=== PATIENT | female | born 1955 | race Caucasian/White ===

== ENCOUNTER 2017-07-12 08:30 | Inpatient (IN) | payer OTHER ==
--- NOTE | 2017-06-15 11:48 | HP ---
DATE OF ADMISSION: 07/12/2017 DATE OF DICTATION: 06/13/2017 DATE OF SURGERY: 07/12/2017 BRIEF HISTORY: This is a 62-year-old female who underwent an open gastric bypass in early 1999/late 1998. She was told by her surgeon that she has a hernia from her bypass, and over the ensuing 15+ years, the hernia has gotten larger and now causes her discomfort. Approximately a month ago, the patient woke up in sharp pain from the hernia. This resolved spontaneously. Since that event, she has had several more episodes of discomfort in the region of the hernia. Each event was associated with nausea but no vomiting. Patient now wishes to undergo a hernia repair. PAST MEDICAL HISTORY: Significant for hypertension, hypercholesterolemia. PAST SURGICAL HISTORY: As mentioned above, laparoscopic cholecystectomy. MEDICATIONS: Hydrochlorothiazide, atorvastatin, vitamins. ALLERGIES: None. SOCIAL HISTORY: Patient does not smoke. She drinks socially. PHYSICAL EXAMINATION: Abdomen: Obese, soft, nontender, nondistended. In the erect position, she has an obvious hernia at the inferior aspect of her midline incision. It is approximately the size of a baseball. It is difficult to note at times on physical exam due to patient's body habitus. The hernia is nontender. The remainder of the abdominal examination is unremarkable. She has a midline incision, and she also has several laparoscopic cholecystectomy scars. IMPRESSION/PLAN: Chronic incarcerated ventral incisional hernia. This is a 62-year-old female who now is symptomatic from her large complex ventral incisional hernia. At this point, I would recommend a repair. The consultation lasted over 1 hour discussing pros and cons of various surgical approaches such as laparoscopic, robotic, and open. We have discussed placement of mesh between intraperitoneal, retrorectus, onlay. We have also discussed the various techniques of repair and different types of meshes to be used. The patient understands the various choices and has opted to proceed with an open ventral hernia repair and component separation with mesh. The indications, alternatives, and complications of this procedure have been discussed at length. Questions have been answered. We will plan to obtain written consent the day of surgery. JOSELIN LENNON M.D. [id number] cc: Rudi Ralph MD
[2017-07-12 09:01] VITALS: BMI 32.5
[2017-07-12] MEDS ORDERED: DEXAMETHASONE SOD PHOSPHATE/PF 10 MG/ML SDV ONE (09:53)
[2017-07-12] MEDS ORDERED: MIDAZOLAM HCL 2 MG/2 ML SINGLE DOSE VIAL ONE (09:53)
[2017-07-12] MEDS ORDERED: BUPIVACAINE HCL/PF (5 MG/ML) 30 ML VIAL IJ ONE (09:54)
[2017-07-12] MEDS ORDERED: morphine CARPU-JECT 10 MG/1 ML DISP.SYRIN IVPB PRN (10:24)
[2017-07-12] MEDS ORDERED: ACETAMINOPHEN 325 MG TABLET (FP) PO PRN (10:24)
[2017-07-12] MEDS ORDERED: ONDANSETRON 4 MG/2 ML VIAL IVPUSH PRN ×2 (10:24→13:30)
[2017-07-12] MEDS ORDERED: traMADol HCL 50 MG TABLET PO PRN (10:28)
[2017-07-12] MEDS ORDERED: D5-1/2NS+20 MEQ KCL - 20 MEQ/1,000 ML INFUS.BAG IV SCH (10:30)
[2017-07-12] MEDS ORDERED: PROPOFOL 20 ML ONE ×3 (11:36→13:54)
[2017-07-12] MEDS ORDERED: ROCURONIUM BROMIDE 50 MG/5 ML VIAL ONE ×3 (11:36→13:18)
[2017-07-12] MEDS ORDERED: fentaNYL CITRATE 250 MCG/5 ML VIAL ONE (11:36)
[2017-07-12] MEDS ORDERED: ceFAZolin SODIUM 1 GM VIAL ONE (12:04)
[2017-07-12] MEDS ORDERED: ONDANSETRON 4 MG/2 ML VIAL ONE ×2 (12:11→13:52)
[2017-07-12] MEDS ORDERED: DEXAMETHASONE SOD PHOSPHATE 4 MG/1 ML VIAL ONE (12:11)
[2017-07-12] MEDS ORDERED: HYDROmorphone HCL CARPU-JECT 1 MG/1 ML DISP.SYRIN IVPUSH PRN (13:30)
[2017-07-12] MEDS ORDERED: LACTATED RINGERS SOLUTION 1,000 ML IV SCH (13:30)
[2017-07-12] MEDS ORDERED: IBUPROFEN 800 MG/8 ML IJ IVPB ONE ×2 (13:30→14:29)
[2017-07-12] MEDS ORDERED: NEOSTIGMINE METHYLSULFATE 0.5 MG/ML - 10 ML MDV ONE (13:52)
[2017-07-12] MEDS ORDERED: GLYCOPYRROLATE 0.2 MG/1 ML VIAL ONE (13:52)
[2017-07-12] MEDS ORDERED: HYDROmorphone HCL CARPU-JECT 1 MG/1 ML DISP.SYRIN IVPUSH ONE ×2 (14:40→15:01)
[2017-07-12] MEDS ORDERED: HYDROmorphone HCL CARPU-JECT 1 MG/1 ML DISP.SYRIN ONE (14:40)
--- NOTE | 2017-07-12 16:31 | OP ---
DATE OF OPERATION: 07/12/2017 PREOPERATIVE DIAGNOSIS: Complex, chronically incarcerated ventral incisional hernia. POSTOPERATIVE DIAGNOSIS: Complex, chronically incarcerated ventral incisional hernia; patient noted to have 2 complex hernias in the abdominal wall. PROCEDURES: Bilateral component separation, extensive lysis of adhesions, repair of complex, chronically incarcerated ventral hernia x2 with mesh. SURGEON: Tai Lennon MD DRAWER WAXER: Tirso Joshi MD ANESTHESIA: Saw Langley MD (general). ESTIMATED BLOOD LOSS: Minimal. SPECIMEN: None. INDICATIONS FOR PROCEDURE: This is a 62-year-old female who underwent an open gastric bypass in 1999. At that time, she was noted to have a large hernia following the bypass, but it had not bothered her and therefore she did not seek attention. Over the ensuing 15 years, the hernia has developed and gotten much larger, and now she has a discrete lump in the lower part of the incision. The mass is causing her discomfort and she wished to have her hernia repaired. The patient was identified and appropriately positioned on the operating room table. After the placement of general anesthesia, the abdomen prepped and draped in the usual sterile fashion with ChloraPrep. A midline incision overlying the previous scar was made and deepened through subcutaneous tissue. The hernia identified in the subcutaneous tissue and dissected free from the subcutaneous tissue bluntly down to the level of the fascia. There was also another hernia noted approximately 5 inches above. This was treated as a second hernia and the bridge between the two was not divided since there was a good 5- inch bridge. The second hernia isolated again and sharply excised at the fascial level. The sac was closed with a running 3-0 Maxon suture. The larger hernia sac inferiorly was opened. The abdomen was entered and in doing so, there were dense adhesions of omentum, small bowel and colon plastered to the anterior abdominal wall. A good portion of this operation was dedicated to an extensive lysis of adhesions (approximately 40 to 45 minutes). All these adhesions were taken down with either cautery or sharply. After the extensive lysis of adhesions, the posterior rectus space was entered by dividing the right posterior rectus sheath. It was opened on the patient's right side and connected at the level of the midline. The posterior rectus space was then developed bluntly and dissection ensued laterally. The perforating vessels encountered and just medial to the perforating vessels, the tissue was scored and the transversus was and released from the obliques along with the rectus at its junction. This myofascial separation ensued approximately 4 to 5 inches above and below the actual defect. A similar approach was done on the patient's left side. The left retrorectus space was entered by dividing the posterior sheath, the muscle identified, and using blunt and sharp dissection the muscles off the posterior sheath. Due to her previous surgery, this area was much more scarred in. However, the muscles divided with the cautery as needed. Again, the perforating vessels encountered and the fascia just medial to the perforating vessels was then divided with the Bovie and the myofascial separation of the rectus from the transversus and obliques was done at their junction. This was taken 4 to 5 inches above and below the actual defect. Next , the posterior sheath was then reapproximated with the 2-0 V-Loc suture. The posterior rectus space was irrigated on both sides and the operative field examined and noted to be hemostatic. The defect identified, and given the large defect, a large 30 x 30 piece of Versatex and a 20 x 15 piece of Phasix was used for the operative repair. The two pieces of mesh were sewn together with interrupted 3-0 Vicryl sutures. The face was placed on the transversus side and the Versatex was placed directly against the rectus muscle. Next, the mesh was placed into the retrorectus space and the mesh superiorly was placed up almost to the level of the costal margins and in the midline this went well above the second defect that was noted and the 5-inch bridge between the two defects did not need to be divided. The patient was noted to have czech cheese in the abdominal wall, but the mesh covered all areas of czech cheese. Next, the mesh was then anchored with interrupted AbsorbaTack anchors all around. All anchors placed under direct counter palpation. The mesh irrigated. The operative field noted to be hemostatic. The midline anterior fascia was then reapproximated with a running number 1 PDS suture. The subcutaneous space was irrigated. A 10-flat CELIA placed and brought out through a separate stab incision. All skin closed with glynn followed by Dermabond. At the conclusion of this case, sponge and instrument counts were correct. ATTESTATION: Brief OP note handwritten on the preprinted form. [facility] queried prior to giving any narcotics. TAI LENNON M.D. LISANDRO/[id number] cc: Rudi Ralph MD MTDD
[2017-07-12] MEDS: IBUPROFEN 800 MG/8 ML IJ IVPB SCH ×3 (16:37→23:48)
[2017-07-13] MEDS ORDERED: diphenhydrAMINE HCL 25 MG CAPSULE (FP) PO ONE (01:24)
[2017-07-13] MEDS: IBUPROFEN 800 MG/8 ML IJ IVPB SCH ×2 (05:00→12:22)
[2017-07-13] MEDS ORDERED: HYDROCHLOROTHIAZIDE 12.5 MG CAPSULE (FP) PO SCH (10:00)
[2017-07-13] MEDS ORDERED: ENOXAPARIN NA (PORCINE) 40 MG/0.4 ML DISP.SYRIN SQ SCH (10:00)
[2017-07-13] MEDS ORDERED: PANTOPRAZOLE SODIUM 40 MG VIAL IVPUSH SCH (10:00)
[2017-07-13] MEDS ORDERED: ATORVASTATIN CA 10 MG TABLET (FP) PO SCH (10:00)
--- NOTE | 2017-07-13 12:31 | DS ---
DATE OF ADMISSION: 07/12/2017 DATE OF DISCHARGE: 07/13/2017 ADMITTING DIAGNOSIS: Complex abdominal wall hernia. DISCHARGE DIAGNOSIS: Complex abdominal wall hernia. BRIEF HISTORY: A 62-year-old female who was admitted to [facility] for operative management of a complex abdominal wall hernia. She underwent surgery on July 12, utilizing component separation, myofascial release, abdominal wall reconstruction, and mesh. Please reference Dr. Tai Coates's operative report for further details. She was admitted to the hospital and did well. She is being discharged home today, July 13. She is tolerating diet, voiding. She will go home with a Hemant-Contreras drain. She will follow with Dr. Coates next week to be evaluated for drain removal. She also has a new prescription for Ultram 50 mg which she will take as needed for pain. She will resume her usual home medications of Lipitor, vitamin D, and her blood pressure medication. She will sponge bathe only until her drain is removed. She is okay to walk, okay to climb stairs. She will not drive. She will not lift anything more than 20 pounds. She will likely require 2 weeks off from work. At the time of her discharge, her dressing is clean, dry, and intact, and her abdominal binder remains in place. DO SHERIDAN ARNDT/[id number]
--- NOTE | 2017-07-13 13:03 | PN ---
Progress Note (short form) - Note Progress Note: 62F POD1 s/p bilateral component separation repair under GA-ETT. Pt states that pain is well controlled, reports no anesthetic complications. AVSS. Continue current regimen.
[2017-07-13 14:22] VITALS: BP 115/55; PULSE 67; TEMP 98.7
== END 2017-07-13 14:58 | disposition home or self-care (01) | DRG 337 ==
LOC: FASU 08:30 → EDSTATUS 12:30 → FM/S 17:35 → FASU 17:35 → FM/S 18:07
PROVIDERS: ADMIT Surgery; ATTEND Surgery
PROC: 0DNW0ZZ Release Peritoneum, Open Approach (ICD-10-PCS; 2017-07-12)
PROC: 0WUF0JZ Supplement Abdominal Wall with Synthetic Substitute, Open Approach (ICD-10-PCS; principal; 2017-07-12 12:12)
DX: K43.2 Incisional hernia without obstruction or gangrene (principal); K66.0 Peritoneal adhesions (postprocedural) (postinfection); I10 Essential (primary) hypertension; Z98.84 Bariatric surgery status; E78.00 Pure hypercholesterolemia, unspecified
CPT/HCPCS: 94760